=== PATIENT | male | born 1985 | race Caucasian/White ===

== ENCOUNTER 2017-07-19 09:24 | Day surgery (SDC) | payer OTHER ==
[2017-07-16 17:23] LABS: ADD MAN DIFF? NO
[2017-07-16 17:25] LABS: BASOPHIL # 0.1 10^3/ul (0.0-0.1); BASOPHILS % 1.1 % (0.0-2.0); EOSINOPHILS # 0.3 10^3/ul (0.0-0.5); EOSINOPHILS % 5.4 % (0.0-7.0); HEMATOCRIT 43.6 % (42.0-52.0); HEMOGLOBIN 14.4 g/dl (14.0-18.0); LYMPHOCYTES # 1.8 10^3/ul (0.8-2.9); LYMPHOCYTES % 30.9 % (15.0-51.0); MEAN CORPUSCULAR HEMOGLOBIN 27.3 pg (29.0-33.0); MEAN CORPUSCULAR VOLUME 82.6 fl (82.0-101.0); MEAN PLATELET VOLUME 9.8 fl (7.4-10.4); MONOCYTE # 0.5 10^3/ul (0.3-0.9); MONOCYTES % 9.1 % (0.0-11.0); NEUTROPHILS % 52.8 % (39.0-77.0); PLATELET COUNT 284 10^3/UL (140-415); RED BLOOD COUNT 5.28 10^6/ul (4.70-6.10); RED CELL DISTRIBUTION WIDTH 13.4 % (11.5-14.5)
[2017-07-16 17:25] LABS: WHITE BLOOD COUNT 5.7 10^3/ul (4.8-10.8)
[2017-07-16 17:55] LABS: PROTIME 13.3 Sec (11.9-14.9)
[2017-07-16 17:56] LABS: PARTIAL THROMBOPLASTIN TIME 33.9 Sec (25.0-35.0)
[2017-07-16 18:23] LABS: ANION GAP 14 (8-16); CARBON DIOXIDE 29 mmol/L (21-31); CHLORIDE 103 mmol/L (97-110); GLUCOSE 83 mg/dl (70-220)
[2017-07-16 18:35] LABS: BLOOD UREA NITROGEN 14 mg/dl (7-20); CALCIUM 9.2 mg/dl (8.4-10.2); CREATININE 0.92 mg/dl (0.61-1.24); POTASSIUM 4.2 mmol/L (3.5-5.1); SODIUM 142 mmol/L (135-144)
[~2017-07-19 09:24] MED LIST: CEFAZOLIN 1 GM INJ; CEFAZOLIN 2 GM/50 ML (PMX) 50 ML IVPB; LACTATED RINGER'S 1,000 ML IV*; Metronidazole 500 MG in NS 100 ML IVPB; metroNIDAZOLE 500 MG/100 ML NS IVPB
[2017-07-19] MEDS ORDERED: MIDAZOLAM 1 MG/ML 2 ML INJ (11:13)
[2017-07-19] MEDS ORDERED: LIDOCAINE 2% (SDV) 5 ML INJ (11:13)
[2017-07-19] MEDS ORDERED: PROPOFOL 20 ML (11:13)
[2017-07-19] MEDS ORDERED: LIDOCAINE 1% (MPF) 30 ML INJ (11:13)
[2017-07-19] MEDS: LIDOCAINE 1%/EPI 30 ML INJ (11:43)
[2017-07-19] MEDS: BUPIVACAINE 0.5% (SDV) 30 ML INJ (11:44)
[2017-07-19] MEDS ORDERED: ONDANSETRON 4 MG INJ (11:57)
== END 2017-07-19 14:00 | disposition home or self-care (01) ==
LOC: SDS 09:24
DX: A63.0 Anogenital (venereal) warts (principal)
CPT/HCPCS: 45305; 80048; 85025; 85610; 85730; 88304